=== PATIENT | female | born 1930 ===

== ENCOUNTER 2019-07-12 20:04 | Emergency (ER) | payer MEDICARE, BC ==
--- NOTE | 2019-07-12 21:52 | EDM.PDOC ---
ED HPI GENERAL MEDICAL PROBLEM - General Chief Complaint: General Stated Complaint: DIZZY WEAKNESS Time Seen by Provider: 07/12/19 20:19 Source of Information: Reports: Patient, Family (Daughter) History Limitations: Reports: No Limitations - History of Present Illness INITIAL COMMENTS - FREE TEXT/NARRATIVE: Ms. Castanon is a most pleasant 88-year-old woman with a past medical history significant for hypertension, untreated GERD, and stress incontinence, who is brought to the ED by her mother. The patient tells me that she developed fairly rapid onset generalized weakness around 15:00 this afternoon. She was standing at the time, but felt like she might fall down, therefore she lowered herself to the floor and stayed there for about 2 hours, until her symptoms improved significantly enough that she could get back up. At that time, she states that she didn't feel quite right, but since then, her symptoms have continued to improve to the point that she now feels completely back to normal. The patient denies that she had any earlier unilateral weakness. She states that she was alone, therefore she cannot say whether or not would have had difficulty understanding language or speaking, however, she had no such difficulty after the event, when she made a phone call. No prior similar symptoms. The patient reports that she has had occasional abdominal pain, and she noticed that her stools were dark today, after eating prunes yesterday. Other than the symptoms, however, she has not had any recent fever, chills, cough, dyspnea, chest pain, palpitations, nausea, vomiting, constipation, diarrhea, urinary symptoms, recent weight gain or weight loss, recent bloody bowel movements, joint aches, headaches, or rashes. The patient's PCP is MALCOM Garcia. She did not receive an influenza vaccine this season, and declined an offer to receive one here today. - Related Data Allergies Allergy/AdvReac Type Severity Reaction Status Date / Time Unable to Assess Allergy Unverified 07/12/19 20:19 Home Meds: Home Meds Enalapril [Vasotec] 10 mg PO DAILY 07/12/19 [History] amLODIPine [Norvasc] 5 mg PO DAILY 07/12/19 [History] Past Medical History Cardiovascular History: Reports: High Cholesterol Gastrointestinal History: Reports: GERD (untreated) Genitourinary History: Reports: Urinary Incontinence (stress incontinence) Musculoskeletal History: Reports: Arthritis, Fracture (nasal) - Past Surgical History HEENT Surgical History: Reports: Cataract Surgery (bilateral), Naso-Sinus Surgery (repair deviated septum), Oral Surgery (2 wisdom teeth extracted) GI Surgical History: Reports: Appendectomy, Hernia, Abdominal (umbilical) Female Surgical History: Reports: D&C (x 1) Musculoskeletal Surgical History: Reports: Carpal Tunnel (bilateral) Social & Family History - Tobacco Use Smoking Status *Q: Never Smoker Second Hand Smoke Exposure: No - Caffeine Use Caffeine Use: Reports: Coffee, Tea - Alcohol Use Alcohol Use History: Yes Alcohol Use Frequency: Rarely - Recreational Drug Use Recreational Drug Use: No - Living Situation & Occupation Living situation: Reports: , Alone Occupation: Retired ED ROS GENERAL - Review of Systems Review Of Systems: Comprehensive ROS is negative, except as noted in HPI. ED EXAM, GENERAL - Physical Exam Exam: See Below Exam Limited By: No Limitations General Appearance: Alert, WD/WN, No Apparent Distress Eye Exam: Bilateral Eye: EOMI, Other (Post-cataract surgery) Ears: Normal External Exam, Normal Canal, Hearing Grossly Normal, Normal TMs Nose: Normal Inspection, Normal Mucosa, No Blood Throat/Mouth: Normal Inspection, Normal Lips, Normal Teeth, Normal Gums, Normal Oropharynx, Normal Voice, No Airway Compromise Head: Atraumatic, Normocephalic Neck: Normal Inspection, Supple, Non-Tender, Full Range of Motion Respiratory/Chest: No Respiratory Distress, Lungs Clear, Normal Breath Sounds, No Accessory Muscle Use Cardiovascular: Normal Peripheral Pulses, Regular Rate, Rhythm, No Edema, No Gallop, No JVD, No Murmur, No Rub Peripheral Pulses: 4+: Radial (L), Radial (R) GI/Abdominal: Normal Bowel Sounds, Soft, Non-Tender, No Organomegaly, No Distention, No Abnormal Bruit, No Mass (Female) Exam: Deferred Rectal (Female) Exam: Deferred Back Exam: Normal Inspection, Full Range of Motion, NT Extremities: Normal Inspection, Normal Range of Motion, No Pedal Edema, Normal Capillary Refill Neurological: Alert, Oriented, CN II-XII Intact, Normal Cognition, No Motor/ Sensory Deficits Psychiatric: Normal Affect Skin Exam: Warm, Dry, Intact, Normal Color, No Rash EKG INTERPRETATION EKG Date: 07/12/19 Time: 21:59 Rhythm: NSR Rate (Beats/Min): 78 [place]: LAD-Left Commerce Deviation (2 LAFB + LVH) P-Wave: Present (1 AVB) QRS: RBBB (Early transition) ST-T: Normal QT: Normal Comparison: NA - No Prior EKG Course - Vital Signs Last Recorded V/S: Last Vital Signs Temp 36.0 C 07/12/19 20:15 Pulse 92 07/12/19 20:15 Resp 20 07/12/19 20:15 BP 164/78 H 07/12/19 20:15 Pulse Ox 99 07/12/19 20:15 Orthostatic Blood Pressure [ 138/68 Standing] Orthostatic Blood Pressure [ 141/69 Supine] - Orders/Labs/Meds Orders: Active Orders 24 hr Category Date Time Status EKG Documentation Completion [RC] STAT Care 07/12/19 21:48 Active Insert Urinary Catheter [OM.PC] Q24H Care 07/12/19 23:00 Ordered Orthostatic Vital Signs [RC] STAT Care 07/12/19 21:48 Active Urinary Catheter Assessment [RC] ASDIRECTED Care 07/12/19 22:47 Active aPTT [PTT,PARTIAL THROMBOPLSTIN TIME] [COAG] Stat Lab 07/13/19 12:00 Ordered Heparin Sodium/D5W [Heparin 25,000 Units in D5W 500 ML] Med 07/12/19 23:15 Active 25,000 units in 500 ml IV TITRATE Medication Orders Heparin Sodium/Dextrose (Heparin 25,000 Units In D5w 500 Ml) 25,000 units in 500 mls @ 24.984 mls/hr IV TITRATE SHAHLA; Protocol Last Titration: 07/13/19 07:42 Dose: 15 units/kg/hr, 20.82 mls/hr Titration: 07/13/19 06:40 Dose: 0 units/kg/hr, 0 mls/hr Admin: 07/12/19 23:55 Dose: 18 units/kg/hr, 24.984 mls/hr Labs: Laboratory Tests 07/12/19 07/12/19 07/12/19 Range/Units 22:07 22:07 22:07 WBC 12.58 H (3.98-10.04) K/mm3 RBC 4.97 (3.98-5.22) M/mm3 Hgb 15.6 (11.2-15.7) gm/dl Hct 44.9 (34.1-44.9) % MCV 90.3 (79.4-94.8) fl MCH 31.4 (25.6-32.2) pg MCHC 34.7 (32.2-35.5) g/dl RDW Std Deviation 41.5 (36.4-46.3) fL Plt Count 310 (182-369) K/mm3 MPV 8.4 L (9.4-12.3) fl Neut % (Auto) 81.6 H (34.0-71.1) % Lymph % (Auto) 13.4 L (19.3-51.7) % Camp % (Auto) 4.1 L (4.7-12.5) % Eos % (Auto) 0.1 L (0.7-5.8) Baso % (Auto) 0.2 (0.1-1.2) % Neut # (Auto) 10.28 H (1.56-6.13) K/mm3 Lymph # (Auto) 1.68 (1.18-3.74) K/mm3 Camp # (Auto) 0.52 H (0.24-0.36) K/mm3 Eos # (Auto) 0.01 L (0.04-0.36) K/mm3 Baso # (Auto) 0.02 (0.01-0.08) K/mm3 Manual Slide Review Abnormal smear PT (9.7-12.0) SECONDS INR APTT (22-31) SECONDS D-Dimer, Quantitative 20.93 H (0.19-0.50) mg/L Sodium 133 L (136-145) mEq/L Potassium 4.6 (3.5-5.1) mEq/L Chloride 100 (98-107) mEq/L Carbon Dioxide 22 (21-32) mEq/L Anion Gap 15.6 H (5-15) BUN 29 H (7-18) mg/dL Creatinine 1.2 H (0.55-1.02) mg/dL Est Cr Clr Drug Dosing 27.98 mL/min Estimated GFR (MDRD) 42 (>60) mL/min BUN/Creatinine Ratio 24.2 H (14-18) Glucose 183 H (83-115) mg/dL Calcium 9.2 (8.5-10.1) mg/dL Magnesium 2.2 (1.8-2.4) mg/dl Total Bilirubin 0.4 (0.2-1.0) mg/dL AST 16 (15-37) U/L ALT 25 (14-59) U/L Alkaline Phosphatase 65 (46-116) U/L Creatine Kinase 141 (26-192) U/L Troponin I < 0.017 (0.00-0.056) ng/mL Total Protein 7.6 (6.4-8.2) g/dl Albumin 3.5 (3.4-5.0) g/dl Globulin 4.1 gm/dL Albumin/Globulin Ratio 0.9 L (1-2) TSH 3rd Generation 2.760 (0.358-3.74) uIU/mL Urine Color (Yellow) Urine Appearance (Clear) Urine pH (5.0-8.0) Ur Specific [place] (1.005-1.030) Urine Protein (Negative) Urine Glucose (UA) (Negative) Urine Ketones (Negative) Urine Occult Blood (Negative) Urine Nitrite (Negative) Urine Bilirubin (Negative) Urine Urobilinogen (0.2-1.0) Ur Leukocyte Esterase (Negative) Urine RBC (0-5) /hpf Urine WBC (0-5) /hpf Ur Squamous Epith Cells (0-5) /hpf Urine Bacteria (FEW) /hpf Hyaline Casts (0-5) /lpf Urine Mucus (FEW) /hpf 07/12/19 07/12/19 07/13/19 Range/Units 22:07 22:20 05:55 WBC (3.98-10.04) K/mm3 RBC (3.98-5.22) M/mm3 Hgb (11.2-15.7) gm/dl Hct (34.1-44.9) % MCV (79.4-94.8) fl MCH (25.6-32.2) pg MCHC (32.2-35.5) g/dl RDW Std Deviation (36.4-46.3) fL Plt Count (182-369) K/mm3 MPV (9.4-12.3) fl Neut % (Auto) (34.0-71.1) % Lymph % (Auto) (19.3-51.7) % Camp % (Auto) (4.7-12.5) % Eos % (Auto) (0.7-5.8) Baso % (Auto) (0.1-1.2) % Neut # (Auto) (1.56-6.13) K/mm3 Lymph # (Auto) (1.18-3.74) K/mm3 Camp # (Auto) (0.24-0.36) K/mm3 Eos # (Auto) (0.04-0.36) K/mm3 Baso # (Auto) (0.01-0.08) K/mm3 Manual Slide Review PT 10.7 11.2 (9.7-12.0) SECONDS INR 0.98 1.03 APTT 27 125 H* D (22-31) SECONDS D-Dimer, Quantitative (0.19-0.50) mg/L Sodium (136-145) mEq/L Potassium (3.5-5.1) mEq/L Chloride (98-107) mEq/L Carbon Dioxide (21-32) mEq/L Anion Gap (5-15) BUN (7-18) mg/dL Creatinine (0.55-1.02) mg/dL Est Cr Clr Drug Dosing mL/min Estimated GFR (MDRD) (>60) mL/min BUN/Creatinine Ratio (14-18) Glucose (83-115) mg/dL Calcium (8.5-10.1) mg/dL Magnesium (1.8-2.4) mg/dl Total Bilirubin (0.2-1.0) mg/dL AST (15-37) U/L ALT (14-59) U/L Alkaline Phosphatase (46-116) U/L Creatine Kinase (26-192) U/L Troponin I (0.00-0.056) ng/mL Total Protein (6.4-8.2) g/dl Albumin (3.4-5.0) g/dl Globulin gm/dL Albumin/Globulin Ratio (1-2) TSH 3rd Generation (0.358-3.74) uIU/mL Urine Color Yellow (Yellow) Urine Appearance Clear (Clear) Urine pH 6.0 (5.0-8.0) Ur Specific [place] > or = 1.030 (1.005-1.030) Urine Protein 1+ H (Negative) Urine Glucose (UA) Negative (Negative) Urine Ketones Negative (Negative) Urine Occult Blood Negative (Negative) Urine Nitrite Negative (Negative) Urine Bilirubin Negative (Negative) Urine Urobilinogen 0.2 (0.2-1.0) Ur Leukocyte Esterase Negative (Negative) Urine RBC 0-5 (0-5) /hpf Urine WBC 0-5 (0-5) /hpf Ur Squamous Epith Cells 0-5 (0-5) /hpf Urine Bacteria Few (FEW) /hpf Hyaline Casts 5-10 H (0-5) /lpf Urine Mucus Few (FEW) /hpf Meds: Medications Generic Name Dose Route Start Last Admin Trade Name Freq PRN Reason Stop Dose Admin Heparin Sodium/Dextrose 25,000 units in 500 mls @ 24.984 mls/hr 07/12/19 23: 15 07/13/19 07:42 Heparin 25,000 Units In D5w 500 Ml IV 15 units/kg/hr TITRATE SHAHLA 20.82 mls/hr Titration Protocol 18 UNITS/KG/HR Discontinued Medications Generic Name Dose Route Start Last Admin Trade Name Freq PRN Reason Stop Dose Admin Al Hydroxide/Mg Hydroxide 30 ml 07/13/19 00:43 07/13/19 01:01 Mag-Al Plus PO 07/13/19 00:44 30 ml ONETIME ONE Administration Heparin Sodium (Porcine) 5,000 units 07/12/19 23:12 07/12/19 23:53 Heparin Sodium IVPUSH 07/12/19 23:13 5,000 units .BOLUS STA Administration - Re-Assessments/Exams Free Text/Narrative Re-Assessment/Exam: 07/12/19 21:50 The patient is reporting a 2 hour episode of generalized weakness, not dizziness ; she denies that she felt lightheaded or vertiginous. At this time, she states that she is essentially back to 100%. Her neurologic examination is normal, and her history is not consistent with a TIA, therefore I do not see an indication for an emergency CT of her head. I have, however, ordered a workup that includes blood work, a urinalysis, orthostatics, and an ECG. 07/12/19 21:55 The patient is not orthostatic. 07/12/19 22:54 The patient's CBC is remarkable for a WBC count elevated at 12.58, but with 0% bandemia and 81.6% neutrophilia. The remainder of her CBC is unremarkable. Her D-dimer is substantially elevated at 20.93. Her CMP, magnesium level, troponin, CPK, and TSH are still pending. The patient's elevated D-dimer is consistent with a pulmonary embolus, and demands a CT angiogram of the chest to evaluate for a PE. Unfortunately, however , our CT scan is down until tomorrow afternoon, and we are unable to perform that study at this time. If the patient were hemodynamically unstable, I would recommend that we start a heparin drip and transfer her to [place] now, however , since the patient is hemodynamically stable and feeling completely back to normal, I'm going to recommend that we start the patient on a heparin drip and hospitalize her until such time as the CT angiogram can be performed. 07/12/19 23:15 D-dimer results discussed with the patient and her daughter. As above, I recommended that we start the patient on a heparin drip now, then offered to either keep her here in the hospital overnight until she can get a CT angiogram tomorrow afternoon, versus transfer her to [place] for more immediate testing. The patient preferred to stay here in [place]. 07/12/19 23:35 The patient's CMP is remarkable for a sodium slightly depressed at 133, an anion gap slightly elevated at 15.6, but with a bicarbonate normal at 22, a BUN/ Cr mildly elevated at 29/1.2, and a blood glucose elevated at 183, with the remainder of her CMP being unremarkable. Her magnesium level is within normal limits at 2.2. Her troponin is undetectably low. Her CPK is within normal limits at 141. Her TSH is within normal limits at 2.760. Her urinalysis is unremarkable. The test results were discussed with the patient and her daughter. As above, a heparin drip will be started, and the patient has agreed to be placed into observation until tomorrow afternoon, when she can undergo a CT angiogram to determine if she has a pulmonary embolus or not. 07/13/19 08:[address] Vu here in the ED. She accepted the patient for placement into observation. Departure - Departure Time of Disposition: 23:37 Disposition: Refer to Observation Clinical Impression: First degree AV block, RBBB, LAFB (left anterior fascicular block), LVH (left ventricular hypertrophy), Elevated d-dimer, Hyperglycemia - Discharge Information *PRESCRIPTION DRUG MONITORING PROGRAM REVIEWED*: Not Applicable *COPY OF PRESCRIPTION DRUG MONITORING REPORT IN PATIENT ELIANA: Not Applicable Referrals: Mary Burris PA-C [Primary Care Provider] - Sepsis Event Note - Evaluation Sepsis Screening Result: No Definite Risk - Focused Exam Date Exam was Performed: 07/13/19 Time Exam was Performed: 08:43 - My Orders Last 24 Hours: My Active Orders 07/12/19 21:48 EKG Documentation Completion [RC] STAT Orthostatic Vital Signs [RC] STAT 07/12/19 22:47 Urinary Catheter Assessment [RC] ASDIRECTED 07/12/19 23:00 Insert Urinary Catheter [OM.PC] Q24H 07/12/19 23:15 Heparin Sodium/D5W [Heparin 25,000 Units in D5W 500 ML] 25,000 units in 500 ml IV TITRATE 07/13/19 12:00 aPTT [PTT,PARTIAL THROMBOPLSTIN TIME] [COAG] Stat - Assessment/Plan Last 24 Hours: My Active Orders 07/12/19 21:48 EKG Documentation Completion [RC] STAT Orthostatic Vital Signs [RC] STAT 07/12/19 22:47 Urinary Catheter Assessment [RC] ASDIRECTED 07/12/19 23:00 Insert Urinary Catheter [OM.PC] Q24H 07/12/19 23:15 Heparin Sodium/D5W [Heparin 25,000 Units in D5W 500 ML] 25,000 units in 500 ml IV TITRATE 07/13/19 12:00 aPTT [PTT,PARTIAL THROMBOPLSTIN TIME] [COAG] Stat
[2019-07-12] MEDS ORDERED: Heparin Sodium 5,000 Units/ML Vial IVPUSH STA (23:12)
[2019-07-12] MEDS ORDERED: Heparin Sodium/D5W 25,000 UNITS/500 ML BAG IV SCH (23:15)
[2019-07-13] MEDS ORDERED: Aluminum Hydroxide/Magnesium Hydroxide/Simethicone Susp 30 ML Cup PO ONE (00:43)
[2019-07-13] MEDS ORDERED: Iopamidol 755 Mg/ML 100 ML Bottle IVPUSH ONE (12:53)
[2019-07-13] MEDS ORDERED: Sodium Chloride 0.9% 10 ML Syringe FLUSH PRN (12:53)
[2019-07-13] MEDS ORDERED: Sodium Chloride 0.9% 100 ML IV SCH (13:00)
--- NOTE | 2019-07-13 13:53 | CT ---
CT chest Technique: Multiple axial sections were obtained through the chest. Intravenous contrast was utilized. Study has been performed as a pulmonary angiogram protocol. Comparison: No prior chest imaging is available. Findings: Pulmonary arteries are well-opacified. No filling defects are seen to indicate pulmonary embolism. Mediastinum and hilar regions show no adenopathy. Ascending aorta is ectatic at 3.8 cm. Atherosclerotic calcification is seen within the thoracic aorta. No pericardial thickening is seen. Heart is slightly enlarged. Visualized upper abdominal structures show no discrete abnormality. Lung window settings were reviewed. Mild interstitial fibrosis is seen. No acute parenchymal change is appreciated. No pleural effusions or pneumothorax are seen. Bone window settings were reviewed which show mild scattered degenerative change within the spine. Nothing acute is appreciated within the osseous system. Impression: 1. No findings of pulmonary embolism. 2. Other findings as noted above which are nonacute. Diagnostic code #2 Study was dictated in [place] Standard Time
--- NOTE | 2019-07-13 15:23 | US ---
Bilateral lower extremity deep venous ultrasound: Duplex and color Doppler evaluation was obtained of the right and left common femoral, proximal greater saphenous, superficial femoral, popliteal, posterior tibial and peroneal veins. Findings: Normal phasic flow, augmentation and compression is seen. Impression: 1. No evidence of deep venous thrombosis is seen within the right or left lower extremities. Diagnostic code #1 Study was dictated in [place] Standard Time
== END 2019-07-13 17:10 | disposition home or self-care (01) ==
LOC: JD.ED 20:04
DX: I44.0 Atrioventricular block, first degree (principal); I51.7 Cardiomegaly; I45.10 Unspecified right bundle-branch block; E78.00 Pure hypercholesterolemia, unspecified; K21.9 Gastro-esophageal reflux disease without esophagitis; Z79.899 Other long term (current) drug therapy; Z90.49 Acquired absence of other specified parts of digestive tract
CPT/HCPCS: 36415; 71275; 80053; 81001; 82550; 83735; 84443; 84484; 85025; 85379; 85610; 85730; 93005; 93225; 93226; 93970; 96365; 96366; 99285; A9270; J1644; J7050; Q9967; 93010